=== PATIENT | male | born 1995 | race Caucasian/White ===

== ENCOUNTER 2020-07-16 16:54 | Outpatient (REF) | payer OTHER, SELFPAY ==
[2020-07-18 18:13] LABS: C. trachomatis RNA TMA DETECTED (NOT DETECTED); N. gonorrhoeae RNA TMA NOT DETECTED (NOT DETECTED)
== END 2020-07-16 16:55 | disposition home or self-care (01) ==
LOC: HO.LAB 16:54
PROVIDERS: Visit Provider Nurse Practitioner Family
DX: Z20.2 Contact with and (suspected) exposure to infections with a predominantly sexual mode of transmission (principal)
CPT/HCPCS: 36415; 87491; 87591

== ENCOUNTER 2023-09-21 09:12 | Outpatient (AMB) | payer BC, SELFPAY ==
[2023-09-21 09:50] VITALS: BP 138/82; PULSE 60; O2SAT 98; BMI 27.3
--- NOTE | 2023-09-21 09:50 | MHC.OFFWIV ---
Intake Vital Signs 09/21/23 09:50 Height 5 ft 10 in Weight 190 lb 2 oz BMI 27.3 BP 138/82 Blood Pressure Location Lt brachial Pulse 60 Pulse Source Pulse Oximeter Pulse Oximetry (%) 98 Oxygen Delivery Method Room Air Intake Visit Reasons: EP STD testing Intake Note: Pt presents to the office today for STD testing. Pt states he doesn't have a primary care and just wanted to be tested. Pt denies any concerns at this time. Patient Tobacco Use Status: Never used Tobacco Allergies No Known Allergies Allergy (Verified 09/21/23 09:51) HPI HPI Comments History of Present Illness Details 27-year-old male presents to the office today requesting STI testing. The patient is asymptomatic and does not have a PCP at this time. He just wants a screening STI exam [facility] Social History Patient Tobacco Use Status: Never used Tobacco Review of Systems Const All systems reviewed & are unremarkable except as noted in HPI and below Physical Exam Vital Signs: Last Vital Signs Pulse 60 09/21/23 09:50 BP 138/82 09/21/23 09:50 Pulse Ox 98 09/21/23 09:50 Oxygen Delivery Method Room Air 09/21/23 09:50 BMI result Body Mass Index 27.3 Const General: healthy appearing and no acute distress Results AMB Urinalysis, Automated UA Leukoctes 0 Mario Alberto/uL Last Edit by Kailee Butler MA on 09/21/23 10:04 UA Nitrite Negative Last Edit by Kailee Butler MA on 09/21/23 10:04 UA Urobilinogen 0.2 mg/dL Last Edit by Kailee Butler MA on 09/21/23 10:04 UA Protein 0 mg/dL Last Edit by Kailee Butler MA on 09/21/23 10:04 UA pH 6.5 Last Edit by Kailee Butler MA on 09/21/23 10:04 UA Blood 0 Konrad/uL Last Edit by Kailee Butler MA on 09/21/23 10:04 UA Specific Webster 1.010 Last Edit by Kailee Butler MA on 09/21/23 10:04 UA Ketone Negative Last Edit by Kailee Butler MA on 09/21/23 10:04 UA Bilirubin 0 mg/dL Last Edit by Kailee Butler MA on 09/21/23 10:04 UA Glucose 0 mg/dL Last Edit by Kailee Butler MA on 09/21/23 10:04 Results Reviewed Results Reviewed: Laboratory Last Values Urine pH (Auto) 6.5 09/21/23 10:03 Specific Webster (Auto) 1.010 09/21/23 10:03 Urine Protein (Auto) 0 mg/dL 09/21/23 10:03 Glucose (UA)(Auto) 0 mg/dL 09/21/23 10:03 Urine Ketones (Auto) Negative 09/21/23 10:03 Urine Blood (Auto) 0 Konrad/uL 09/21/23 10:03 Urine Nitrite (Auto) Negative 09/21/23 10:03 Urine Bilirubin (Auto) 0 mg/dL 09/21/23 10:03 Urine Urobilinogen (Auto) 0.2 mg/dL 09/21/23 10:03 Leukocyte Esterase (Auto) 0 Mario Alberto/uL 09/21/23 10:03 Assessment & Plan Assessment & Plan (1) STD exposure: Code(s): Z20.2 - Contact with and (suspected) exposure to infections with a predominantly sexual mode of transmission Plan: We will call the patient with the results of his STI screening. The patient refused syphilis and HIV blood testing here Plan See plan Orders: Orders AMB Urinalysis Automated Today Z13.9 - Encounter for screening, unspecified CT NG by PCR Today Z20.2 - Contact with and (suspected) exposure to infections with a predominantly sexual mode of transmission Coding Level of Care Code Est Pt Level 3 ([id number]) Diagnoses STD exposure Z20.2
== END 2023-09-21 11:07 | disposition home or self-care (01) ==
PROVIDERS: Visit Provider Physician Assistant Medical
DX: Z13.9 Encounter for screening, unspecified (principal); Z20.2 Contact with and (suspected) exposure to infections with a predominantly sexual mode of transmission
CPT/HCPCS: 81003; 99213

== ENCOUNTER 2023-09-21 10:27 | Outpatient (REF) | payer BC, SELFPAY ==
[2023-09-21 15:41] LABS: CT PCR DETECTED (Not Detect.); NG PCR NOT DETECTED (Not Detect.)
== END 2023-09-21 10:28 | disposition home or self-care (01) ==
LOC: HO.LAB 10:27
PROVIDERS: Visit Provider Physician Assistant Medical
DX: Z20.2 Contact with and (suspected) exposure to infections with a predominantly sexual mode of transmission (principal)
CPT/HCPCS: 0353U